=== PATIENT | female | born 1945 | race Caucasian/White ===

== ENCOUNTER 2016-05-21 10:09 | Inpatient (IN) | payer MEDICARE, OTHER ==
[~2016-05-21] VITALS: Ht 160 cm; Wt 94.3 kg
[2016-05-21 11:15] LABS: HEMOGLOBIN 14.3 gm/dl (12.3-15.3); RED BLOOD COUNT 5.35 M/UL (4.00-5.10); WHITE BLOOD COUNT 7.9 K/UL (4.5-11.0)
[2016-05-21] MEDS ORDERED: DIGOXIN125 MCG PO (14:40)
[2016-05-21] MEDS ORDERED: XARELTO20 MG PO (14:41)
[2016-05-21] MEDS ORDERED: DIABETA 2.5 MG2.5 MG PO (14:42)
[2016-05-21] MEDS ORDERED: ASPIRIN325 MG PO (14:42)
[2016-05-21] MEDS ORDERED: METOPROLOL TAR100 MG PO (14:43)
[2016-05-21] MEDS ORDERED: LEVOTHYROXINE75 MCG PO (14:43)
[2016-05-21] MEDS ORDERED: CATAPRES 0.1MG0.1 MG PO (14:43)
[2016-05-21] MEDS ORDERED: SIMVASTATIN40 MG PO (14:45)
[2016-05-21] MEDS ORDERED: VALSARTAN-HCTZ1 EAC3 PO (14:46)
[2016-05-22 04:07] LABS: HEMOGLOBIN 14.5 gm/dl (12.3-15.3); RED BLOOD COUNT 5.36 M/UL (4.00-5.10)
[2016-05-22 04:09] LABS: WHITE BLOOD COUNT 5.5 K/UL (4.5-11.0)
[2016-05-22 20:44] LABS: HEMOGLOBIN 13.6 gm/dl (12.3-15.3); RED BLOOD COUNT 5.07 M/UL (4.00-5.10)
[2016-05-22 20:46] LABS: WHITE BLOOD COUNT 12.1 K/UL (4.5-11.0)
[2016-05-24 06:22] LABS: RED BLOOD COUNT 5.18 M/UL (4.00-5.10)
[2016-05-24 06:23] LABS: WHITE BLOOD COUNT 8.1 K/UL (4.5-11.0)
[2016-05-24] MEDS ORDERED: ASPIR 8181 MG PO (17:44)
[2016-05-24] MEDS ORDERED: LEVOTHYROXINE50 MCG PO (17:46)
[2016-05-24] MEDS ORDERED: TYLENOL 325MG325 MG PO (17:52)
[2016-05-24] MEDS ORDERED: XARELTO 15 MG T15 MG PO (17:54)
[2016-05-24] MEDS ORDERED: TAMIFLU75 MG PO (18:35)
[2016-05-24] MEDS ORDERED: CORDARONE 200M200 MG PO (18:37)
== END 2016-05-24 19:17 | disposition home or self-care (01) | DRG 308 ==
LOC: ER1 10:09 → PROG CARE 12:14 → ZEROF 12:14 → PROG CARE 14:27 → MED SURG 4 05-23 22:40
PROVIDERS: Emergency Medicine; Internal Medicine Cardiovascular Disease; Physician Assistant Medical; ADMIT Internal Medicine Infectious Disease
PROC: B24BZZ4 Ultrasonography of Heart with Aorta, Transesophageal (ICD-10-PCS; principal; 2016-05-22)
PROC: 5A2204Z Restoration of Cardiac Rhythm, Single (ICD-10-PCS; 2016-05-22)
DX: I48.0 Paroxysmal atrial fibrillation (principal); I50.33 Acute on chronic diastolic (congestive) heart failure; N17.9 Acute kidney failure, unspecified; I11.0 Hypertensive heart disease with heart failure; I25.10 Atherosclerotic heart disease of native coronary artery without angina pectoris; Z95.1 Presence of aortocoronary bypass graft; E78.5 Hyperlipidemia, unspecified; E11.9 Type 2 diabetes mellitus without complications; E66.9 Obesity, unspecified; Z68.36 Body mass index [BMI] 36.0-36.9, adult; J11.1 Influenza due to unidentified influenza virus with other respiratory manifestations; B00.1 Herpesviral vesicular dermatitis; E03.9 Hypothyroidism, unspecified; Z90.710 Acquired absence of both cervix and uterus; Z98.51 Tubal ligation status; Z79.84 Long term (current) use of oral hypoglycemic drugs; Z79.82 Long term (current) use of aspirin; Z79.899 Other long term (current) drug therapy; Z87.891 Personal history of nicotine dependence; Z82.49 Family history of ischemic heart disease and other diseases of the circulatory system; R50.9 Fever, unspecified
CPT/HCPCS: 36415; 71010; 80048; 80053; 80061; 80162; 81001; 82550; 82553; 82962; 83036; 83605; 83735; 83874; 83880; 84439; 84443; 84484; 85025; 85027; 87040; 87086; 93005; 93312; 93320; 94640; 94664; 96365; 96366; 96375; 96376; 99291; J1160; J1200; J1335; J1940; J2250; J2270; J2930; J7040; J7050

== ENCOUNTER → 2016-06-25 | Outpatient (CLI) | payer MEDICARE, OTHER ==
[~2016-06-25] MED LIST: ASPIR 8181 MG PO; ASPIRIN325 MG PO; CARDURA 2MG TAB2 MG PO; CATAPRES 0.1MG0.1 MG PO; CORDARONE 200M200 MG PO; DIABETA 2.5 MG2.5 MG PO; DIABETA 5 MG TAB5 MG PO; DIGOXIN125 MCG PO; DIOVAN320 MG PO; HYDRALAZINE HCL25 MG PO; HYDROCHLOROTHIA25 MG PO; LEVOTHYROXINE50 MCG PO; LEVOTHYROXINE75 MCG PO; LISINOPRIL40 MG PO; METOPROLOL TAR100 MG PO; NORVASC 5 MG TAB5 MG PO; SIMVASTATIN40 MG PO; TAMIFLU75 MG PO; TYLENOL 325MG325 MG PO; VALSARTAN-HCTZ1 EAC3 PO; XARELTO 15 MG T15 MG PO; XARELTO20 MG PO
== END ==
LOC: LAB 09:50
PROVIDERS: Internal Medicine Cardiovascular Disease
DX: Z00.00 Encounter for general adult medical examination without abnormal findings (principal); I10 Essential (primary) hypertension
CPT/HCPCS: 36415; 80048

== ENCOUNTER → 2016-07-03 | Outpatient (CLI) | payer MEDICARE, OTHER | LOC: LAB 08:37 | PROVIDERS: Internal Medicine Cardiovascular Disease | DX: I25.10 Atherosclerotic heart disease of native coronary artery without angina pectoris (principal); I48.0 Paroxysmal atrial fibrillation; R06.02 Shortness of breath; E78.5 Hyperlipidemia, unspecified; Z79.899 Other long term (current) drug therapy | CPT/HCPCS: 36415; 80053; 84439; 84443; 84481 ==

== ENCOUNTER 2016-07-24 23:48 | Inpatient (IN) | payer MEDICARE, OTHER ==
[~2016-07-24] VITALS: Ht 160 cm; Wt 95.7 kg
[~2016-07-24 23:48] MED LIST changes: -CARDURA 2MG TAB2 MG PO; -DIABETA 5 MG TAB5 MG PO; -DIOVAN320 MG PO; -HYDRALAZINE HCL25 MG PO; -HYDROCHLOROTHIA25 MG PO; -LISINOPRIL40 MG PO; -NORVASC 5 MG TAB5 MG PO
[2016-07-25 00:30] LABS: HEMOGLOBIN 13.7 gm/dl (12.3-15.3); RED BLOOD COUNT 5.28 M/UL (4.00-5.10)
[2016-07-25 01:03] LABS: BUN/CREATININE RATIO 18 (0-10)
[2016-07-25] MEDS ORDERED: DIABETA 5 MG TAB5 MG PO (03:00)
[2016-07-25] MEDS ORDERED: HYDROCHLOROTHIA25 MG PO (03:04)
[2016-07-25] MEDS ORDERED: DIOVAN320 MG PO (03:05)
[2016-07-25] MEDS ORDERED: CATAPRES 0.1MG0.1 MG PO (03:06)
[2016-07-25 06:48] LABS: HEMOGLOBIN 12.9 gm/dl (12.3-15.3); RED BLOOD COUNT 5.01 M/UL (4.00-5.10)
[2016-07-25 07:15] LABS: BUN/CREATININE RATIO 16 (0-10)
[2016-07-27] MEDS ORDERED: NORVASC 5 MG TAB5 MG PO (11:40)
[2016-07-27] MEDS ORDERED: CARDURA 2MG TAB2 MG PO (11:41)
[2016-07-27] MEDS ORDERED: HYDRALAZINE HCL25 MG PO (11:42)
[2016-07-27] MEDS ORDERED: LISINOPRIL40 MG PO (11:43)
== END 2016-07-27 16:36 | disposition home or self-care (01) | DRG 304 ==
LOC: ER1 23:48 → M/S 07-25 01:42 → ZEROF 07-25 01:42 → M/S 07-25 02:41
PROVIDERS: Emergency Medicine; ADMIT Internal Medicine
DX: I16.1 Hypertensive emergency (principal); I50.33 Acute on chronic diastolic (congestive) heart failure; I11.0 Hypertensive heart disease with heart failure; I48.0 Paroxysmal atrial fibrillation; R07.9 Chest pain, unspecified; E11.65 Type 2 diabetes mellitus with hyperglycemia; E66.3 Overweight; Z68.37 Body mass index [BMI] 37.0-37.9, adult; I25.10 Atherosclerotic heart disease of native coronary artery without angina pectoris; Z87.891 Personal history of nicotine dependence; Z95.1 Presence of aortocoronary bypass graft; E78.5 Hyperlipidemia, unspecified; Z72.3 Lack of physical exercise; Z79.02 Long term (current) use of antithrombotics/antiplatelets; Z79.82 Long term (current) use of aspirin; Z79.84 Long term (current) use of oral hypoglycemic drugs; Z79.899 Other long term (current) drug therapy; Z88.8 Allergy status to other drugs, medicaments and biological substances; Z82.49 Family history of ischemic heart disease and other diseases of the circulatory system; Z82.1 Family history of blindness and visual loss
CPT/HCPCS: ECHO; 36415; 71010; 80048; 80053; 82550; 82553; 82962; 83036; 83735; 83874; 83880; 84100; 84439; 84443; 84484; 85025; 93005; 93306; 96374; 99285; J0360

== ENCOUNTER → 2016-07-30 | Outpatient (CLI) | payer MEDICARE, OTHER ==
[~2016-07-30] MED LIST changes: +CARDURA 2MG TAB2 MG PO; +DIABETA 5 MG TAB5 MG PO; +DIOVAN320 MG PO; +HYDRALAZINE HCL25 MG PO; +HYDROCHLOROTHIA25 MG PO; +LISINOPRIL40 MG PO; +NORVASC 5 MG TAB5 MG PO
== END ==
LOC: LAB 12:03
PROVIDERS: Physician Assistant Medical
DX: E87.6 Hypokalemia (principal)
CPT/HCPCS: 36415; 80048

== ENCOUNTER → 2016-08-12 | Outpatient (CLI) | payer MEDICARE, OTHER | LOC: LAB 10:48 | DX: I48.91 Unspecified atrial fibrillation (principal); E05.90 Thyrotoxicosis, unspecified without thyrotoxic crisis or storm; R06.02 Shortness of breath; Z79.899 Other long term (current) drug therapy | CPT/HCPCS: 36415; 84439; 84443; 84481 ==

== ENCOUNTER → 2020-05-22 | Outpatient (CLI) | payer MEDICARE, OTHER ==
[~2020-05-22] MED LIST changes: +ALLERGY RELIEF10 MG PO; +AMIODARONE HCL200 MG PO; +CARDIZEM CD240 MG PO; +DIOVAN HCT 3201 EAC1 PO; +DOXAZOSIN MESYLA2 MG PO; +FEOSOL325 MG PO; +FERROUS SULFAT325 M2 PO; +FUROSEMIDE20 MG PO; +GLUCOPHAGE 500500 MG PO; +GLUCOTROL5 MG PO; +IRON18 MG PO; +K-DUR TAB 10 M10 MEQ PO; +KLOR-CON 1010 MEQ PO; +LEVOTHYROXINE25 MCG PO; +LIPITOR TAB 2020 MG PO; +LOPRESSOR100 MG PO; +LOSARTAN-HCTZ1 EAC2 PO; +NITROSTAT0.4 MG SL; +NORVASC5 MG PO; +PROTONIX 40 MG40 M1 PO; +PROTONIX40 MG PO; +SIMVASTATIN20 MG PO; +SYNTHROID100 MCG PO; +SYNTHROID25 MCG PO; +VALSARTAN-HCTZ1 EAC2 PO; +VALSARTAN-HCTZ1 EACH PO; +ZOCOR40 MG PO
== END ==
LOC: HEART 5 13:02
DX: Z79.899 Other long term (current) drug therapy (principal); R06.00 Dyspnea, unspecified; R05 Cough
CPT/HCPCS: 94060; 94729

== ENCOUNTER → 2020-05-25 | Outpatient (CLI) | payer MEDICARE, OTHER | LOC: HEART 5 13:59 | DX: I48.91 Unspecified atrial fibrillation (principal); I25.10 Atherosclerotic heart disease of native coronary artery without angina pectoris; I50.9 Heart failure, unspecified; I51.7 Cardiomegaly | CPT/HCPCS: 93306 ==

== ENCOUNTER 2020-05-31 05:28 | Observation (INO) | payer MEDICARE, OTHER ==
[~2020-05-31] VITALS: Ht 160 cm; Wt 91.6 kg
[~2020-05-31 05:28] MED LIST changes: -ALLERGY RELIEF10 MG PO; -DIOVAN HCT 3201 EAC1 PO; -FERROUS SULFAT325 M2 PO; -GLUCOPHAGE 500500 MG PO; -GLUCOTROL5 MG PO; -KLOR-CON 1010 MEQ PO; -LOPRESSOR100 MG PO; -NITROSTAT0.4 MG SL; -NORVASC5 MG PO; -PROTONIX 40 MG40 M1 PO; -SYNTHROID100 MCG PO
[2020-05-31 06:08] LABS: HEMOGLOBIN 13.3 gm/dl (12.3-15.3); RED BLOOD COUNT 5.43 M/UL (4.00-5.10); WHITE BLOOD COUNT 14.6 K/UL (4.5-11.0)
[2020-05-31 06:27] LABS: BUN/CREATININE RATIO 16 (0-10)
[2020-05-31] MEDS ORDERED: SYNTHROID100 MCG PO (07:18)
[2020-05-31] MEDS ORDERED: AMIODARONE HCL200 MG PO (08:12)
[2020-05-31] MEDS ORDERED: GLUCOTROL5 MG PO (08:56)
[2020-05-31] MEDS ORDERED: LOPRESSOR100 MG PO (08:57)
[2020-05-31] MEDS ORDERED: NORVASC5 MG PO (10:02)
[2020-05-31] MEDS ORDERED: CATAPRES 0.1MG0.1 MG PO (10:04)
[2020-05-31] MEDS ORDERED: FERROUS SULFAT325 M2 PO (10:05)
[2020-05-31] MEDS ORDERED: KLOR-CON 1010 MEQ PO (10:06)
[2020-05-31] MEDS ORDERED: DIOVAN HCT 3201 EAC1 PO (10:06)
[2020-05-31] MEDS ORDERED: ALLERGY RELIEF10 MG PO (10:07)
[2020-05-31] MEDS ORDERED: XARELTO20 MG PO (11:16)
[2020-05-31 15:23] LABS: RED BLOOD COUNT 5.26 M/UL (4.00-5.10)
[2020-05-31] MEDS ORDERED: GLUCOPHAGE 500500 MG PO (16:56)
[2020-06-01 04:55] LABS: HEMOGLOBIN 11.2 gm/dl (12.3-15.3)
[2020-06-01 04:58] LABS: RED BLOOD COUNT 4.71 M/UL (4.00-5.10); WHITE BLOOD COUNT 7.4 K/UL (4.5-11.0)
[2020-06-01] MEDS ORDERED: PROTONIX 40 MG40 M1 PO (14:56)
[2020-06-01] MEDS ORDERED: NITROSTAT0.4 MG SL (15:03)
== END 2020-06-01 15:42 | disposition home or self-care (01) ==
LOC: ER1 05:28 → CDU 08:18 → MED SURG 4 15:42
PROVIDERS: Family Medicine; Physician Assistant Medical; ADMIT Internal Medicine
DX: R07.89 Other chest pain (principal); I25.10 Atherosclerotic heart disease of native coronary artery without angina pectoris; I48.20 Chronic atrial fibrillation, unspecified; I27.20 Pulmonary hypertension, unspecified; I11.0 Hypertensive heart disease with heart failure; I50.30 Unspecified diastolic (congestive) heart failure; E11.9 Type 2 diabetes mellitus without complications; E78.5 Hyperlipidemia, unspecified; E03.9 Hypothyroidism, unspecified; D64.9 Anemia, unspecified; J44.9 Chronic obstructive pulmonary disease, unspecified; K21.9 Gastro-esophageal reflux disease without esophagitis; K29.70 Gastritis, unspecified, without bleeding; I08.1 Rheumatic disorders of both mitral and tricuspid valves; I45.10 Unspecified right bundle-branch block; Z95.1 Presence of aortocoronary bypass graft; Z87.891 Personal history of nicotine dependence; Z98.890 Other specified postprocedural states; Z79.01 Long term (current) use of anticoagulants; Z79.84 Long term (current) use of oral hypoglycemic drugs; Z79.899 Other long term (current) drug therapy; Z20.822 Contact with and (suspected) exposure to COVID-19
CPT/HCPCS: 71045; 71046; 80048; 80053; 82550; 82553; 82962; 83735; 83874; 84484; 85025; 85027; 93005; 99285; G0378; J7030; U0002

== ENCOUNTER 2021-02-23 16:05 | Inpatient (IN) | payer MEDICARE, OTHER ==
[~2021-02-23] VITALS: Ht 160 cm; Wt 83.9 kg
[~2021-02-23 16:05] MED LIST changes: +ALLERGY RELIEF10 MG PO; +DIOVAN HCT 3201 EAC1 PO; +FERROUS SULFAT325 M2 PO; +GLUCOPHAGE 500500 MG PO; +GLUCOTROL5 MG PO; +KLOR-CON 1010 MEQ PO; +LOPRESSOR100 MG PO; +NITROSTAT0.4 MG SL; +NORVASC5 MG PO; +PROTONIX 40 MG40 M1 PO; +SYNTHROID100 MCG PO
[2021-02-23 16:51] LABS: HEMOGLOBIN 12.4 gm/dl (12.3-15.3); RED BLOOD COUNT 5.35 M/UL (4.00-5.10); WHITE BLOOD COUNT 11.7 K/UL (4.5-11.0)
[2021-02-24] MEDS ORDERED: ISOSORBIDE MONO30 MG PO (01:14)
[2021-02-24 05:13] LABS: HEMOGLOBIN 11.3 gm/dl (12.3-15.3); RED BLOOD COUNT 4.99 M/UL (4.00-5.10)
[2021-02-24] MEDS ORDERED: PROAIR HFA8.5 GM INH (08:56)
[2021-02-24] MEDS ORDERED: AZITHROMYCIN250 MG PO (08:57)
[2021-02-24] MEDS ORDERED: DEXAMETHASONE6 MG PO (08:58)
[2021-02-24] MEDS ORDERED: PREDNISONE20 MG PO (09:00)
[2021-02-24 12:12] LABS: ACINETOBACTER BAUMANNII Not Detected (Negative); CANDIDA ALBICANS Not Detected (Negative); CANDIDA KRUSEI Not Detected (Negative); CANDIDA TROPICALIS Not Detected (Negative); ENTEROCOCCUS Not Detected (Negative); ESCHERICHIA COLI Not Detected (Negative); HAEMOPHILUS INFLUENZAE Not Detected (Negative); KLEBSIELLA OXYTOCA Not Detected (Negative); KLEBSIELLA PNEUMONIAE Not Detected (Negative); KPC-CARBAPENEM-RESISTANCE GENE Not Detected (Negative); PROTEUS Not Detected (Negative); PSEUDOMONAS AERUGINOSA Not Detected (Negative); SERRATIA MARCESANS Not Detected (Negative); STAPHYLOCOCCUS AUREUS Not Detected (Negative); STREP AGALACTIAE (GROUP B) Not Detected (Negative); STREP PYOGENES (GROUP A) Not Detected (Negative); STREPTOCOCCUS Not Detected (Negative); vanA/B (VANCOMYCIN RESIST GENE Not Detected (Negative)
[2021-02-24 13:40] LABS: STAPHYLOCOCCUS DETECTED (Negative); mecA (METHICILLIN RESIST GENE DETECTED (Negative)
[2021-02-25 05:30] LABS: HEMOGLOBIN 11.8 gm/dl (12.3-15.3); RED BLOOD COUNT 5.36 M/UL (4.00-5.10); WHITE BLOOD COUNT 6.9 K/UL (4.5-11.0)
[2021-02-25 06:16] LABS: BUN/CREATININE RATIO 21 (0-10)
[2021-02-26 04:57] LABS: HEMOGLOBIN 10.7 gm/dl (12.3-15.3); RED BLOOD COUNT 4.91 M/UL (4.00-5.10)
[2021-02-26 05:08] LABS: WHITE BLOOD COUNT 11.5 K/UL (4.5-11.0)
[2021-02-26 05:52] LABS: BUN/CREATININE RATIO 27 (0-10)
[2021-02-27 06:00] LABS: RED BLOOD COUNT 5.01 M/UL (4.00-5.10); WHITE BLOOD COUNT 16.2 K/UL (4.5-11.0)
[2021-02-27 06:37] LABS: BUN/CREATININE RATIO 28 (0-10)
[2021-02-28 06:03] LABS: HEMOGLOBIN 12.1 gm/dl (12.3-15.3); RED BLOOD COUNT 5.39 M/UL (4.00-5.10); WHITE BLOOD COUNT 13.9 K/UL (4.5-11.0)
[2021-02-28 06:54] LABS: BUN/CREATININE RATIO 30 (0-10)
[2021-03-02 08:24] LABS: BUN/CREATININE RATIO 47 (0-10)
[2021-03-03 05:57] LABS: HEMOGLOBIN 10.8 gm/dl (12.3-15.3); RED BLOOD COUNT 4.81 M/UL (4.00-5.10); WHITE BLOOD COUNT 21.4 K/UL (4.5-11.0)
--- NOTE | 2021-03-03 06:56 | NUR ---
PT'S DAUGHTER TOOK OUT HEARING AID AT 0500 AM TODAY IN ATTEMPT FOR HER TO DECREASE STIMULATION AND HELP PT REST BETTER
--- NOTE | 2021-03-04 21:00 | NUR ---
PATIENT LETHARGIC . RESPONDS VERBALLY WITH STERNAL RUB. PRECEDEX STOPPED. JENELLE AT BEDSIDE , ALL QUESTIONS AND CONCERNS ADDRESSED. RECEIVED CALL FROM PATIENTS DAUGHTER, SHE WAS CONTACTED BY JENELLE WITH CONCERNS. MARIANGEL QUESTIONS AND CONCERNS ADDRESSED. PO MEDS DUE AT THIS TIME HELD UNTIL AWAKE ENOUGH TO ADMINISTER.
--- NOTE | 2021-03-04 22:36 | NUR ---
PATIENT AWAKE AND RESPONDING VERBALLY. TOOK PO MEDS WITH APPLESAUCE WITHOUT COMPLICATION. GRANDAUGHTER AT BEDSIDE . PRECEDEX REMAINS OFF AT THIS TIME.
[2021-03-05 05:11] LABS: HEMOGLOBIN 10.7 gm/dl (12.3-15.3); RED BLOOD COUNT 4.79 M/UL (4.00-5.10); WHITE BLOOD COUNT 22.6 K/UL (4.5-11.0)
--- NOTE | 2021-03-05 19:00 | NUR ---
FAMILY MEMBERS X 2 AT BEDSIDE (PT'S DAUGHTER AND PT'S SON-IN-LAW). DAUGHTER STATES SHES TURNING AND PROVIDING BASIC NEEDS SUCH FEEDING AND DRINKING. THEY WERE ALSO CLEANING PATIENT WHEN SHE WAS INCONTENENT OF STOOL. ENCOURAGED TO REPORT ANY NEEDS . VERBALIZED UNDERSTANDING.
--- NOTE | 2021-03-06 14:46 | NUR ---
CALLED DR. ALEJANDRE ABOUT [facility] RVR. PHONE LINE WAS BUSY. WILL TRY TO CALL AGAIN.
[2021-03-06 15:19] LABS: HEMOGLOBIN 10.6 gm/dl (12.3-15.3); RED BLOOD COUNT 4.64 M/UL (4.00-5.10); WHITE BLOOD COUNT 22.2 K/UL (4.5-11.0)
--- NOTE | 2021-03-06 20:23 | NUR ---
RECEIVED CALLS FROM JUWAN ( DAUGHTER AND GRANDAUGHTER) OF PATIENT. CONCERNS WERE DISCUSSED REGARDING PATIENTS MEDICATIONS XANAX AND SEROQUEL. PER FAMILY THOSE MEDICATIONS WILL BE HELD AND INFORMATION WILL BE RELAYED TO ONCOMING SHIFT. NAZARIO STATES SHES A HELTH STRAP MAKER AND WISHES TO SPEAK WITH PRIMARY PHYSICIAN REGARDING MEDICATIONS. ALL QUESTONS AND CONCERNS WERE ADDRESSED BY MYSELF UNTIL FAMILY CAN PROCEED WITH FURTHER QUESTIONS WITH PHYSICIAN.
--- NOTE | 2021-03-06 22:42 | NUR ---
IV RIGHT FOREARM INFILTRATED. IVF STOPPED ,IV DISCONTINUED . ATTEPTING TO OBTAIN NEW IV SITE.
--- NOTE | 2021-03-07 03:44 | NUR ---
OCCASIONALLY TAKES AIR-VO CANNULA OFF AND DESATS EASILY TO 74% . PLEASANT AT THIS TIME, LAUGHS AND MAKES MUMBLING CONVERSATION. NO S/S DISTRESS OR DISCOMFORT.
[2021-03-07 05:24] LABS: HEMOGLOBIN 11.4 gm/dl (12.3-15.3); RED BLOOD COUNT 5.1 M/UL (4.00-5.10)
[2021-03-07 05:27] LABS: WHITE BLOOD COUNT 31.7 K/UL (4.5-11.0)
[2021-03-07 18:17] LABS: RED BLOOD COUNT 5.18 M/UL (4.00-5.10)
[2021-03-08 03:13] LABS: HEMOGLOBIN 11.4 gm/dl (12.3-15.3); RED BLOOD COUNT 5.05 M/UL (4.00-5.10); WHITE BLOOD COUNT 29.1 K/UL (4.5-11.0)
[2021-03-08 04:13] LABS: BUN/CREATININE RATIO 41 (0-10)
[2021-03-09 03:33] LABS: HEMOGLOBIN 11.8 gm/dl (12.3-15.3); RED BLOOD COUNT 5.21 M/UL (4.00-5.10)
[2021-03-09] MEDS ORDERED: BUDESONIDE0.5 MG/2 M NEB (09:11)
[2021-03-09] MEDS ORDERED: ATIVAN0.5 MG PO (09:11)
[2021-03-09] MEDS ORDERED: ROXANOL SOLN20 MG/ML PO (09:11)
[2021-03-09] MEDS ORDERED: LEVALBUTER1.25 MG/3 NEB (09:11)
[2021-03-09 13:29] LABS: WHITE BLOOD COUNT 30.2 K/UL (4.5-11.0)
== END 2021-03-11 16:40 | DRG 177 ==
LOC: ER1 16:05 → PROG CARE 18:30 → CCU 18:30 → CDU 18:30 → MED SURG 4 18:30 → CCU 02-27 14:52 → PROG CARE 03-07 12:38
PROVIDERS: Internal Medicine; Physician Assistant; ADMIT Internal Medicine
PROC: 8E0ZXY6 Isolation (ICD-10-PCS; principal; 2021-02-23)
PROC: 3E0333Z Introduction of Anti-inflammatory into Peripheral Vein, Percutaneous Approach (ICD-10-PCS; 2021-02-23)
PROC: XW033E5 Introduction of Remdesivir Anti-infective into Peripheral Vein, Percutaneous Approach, New Technology Group 5 (ICD-10-PCS; 2021-02-23)
PROC: 5A0945A Assistance with Respiratory Ventilation, 24-96 Consecutive Hours, High Flow/Velocity Cannula (ICD-10-PCS; 2021-02-23)
PROC: 5A09457 Assistance with Respiratory Ventilation, 24-96 Consecutive Hours, Continuous Positive Airway Pressure (ICD-10-PCS; 2021-02-27)
PROC: 5A09457 Assistance with Respiratory Ventilation, 24-96 Consecutive Hours, Continuous Positive Airway Pressure (ICD-10-PCS; 2021-03-04)
DX: U07.1 COVID-19 (principal); J12.82 Pneumonia due to coronavirus disease 2019; J80 Acute respiratory distress syndrome; G93.41 Metabolic encephalopathy; A41.9 Sepsis, unspecified organism; J15.9 Unspecified bacterial pneumonia; R65.20 Severe sepsis without septic shock; E87.1 Hypo-osmolality and hyponatremia; N17.9 Acute kidney failure, unspecified; J44.0 Chronic obstructive pulmonary disease with (acute) lower respiratory infection; E87.0 Hyperosmolality and hypernatremia; E44.1 Mild protein-calorie malnutrition; I50.32 Chronic diastolic (congestive) heart failure; I48.92 Unspecified atrial flutter; Z66 Do not resuscitate; E03.9 Hypothyroidism, unspecified; E78.5 Hyperlipidemia, unspecified; I45.10 Unspecified right bundle-branch block; E66.9 Obesity, unspecified; I27.20 Pulmonary hypertension, unspecified; F03.90 Unspecified dementia, unspecified severity, without behavioral disturbance, psychotic disturbance, mood disturbance, and anxiety; I11.0 Hypertensive heart disease with heart failure; K29.50 Unspecified chronic gastritis without bleeding; I48.0 Paroxysmal atrial fibrillation; E11.9 Type 2 diabetes mellitus without complications; I25.10 Atherosclerotic heart disease of native coronary artery without angina pectoris; E88.09 Other disorders of plasma-protein metabolism, not elsewhere classified; K21.9 Gastro-esophageal reflux disease without esophagitis; Z95.1 Presence of aortocoronary bypass graft; Z79.84 Long term (current) use of oral hypoglycemic drugs; Z79.899 Other long term (current) drug therapy; Z82.49 Family history of ischemic heart disease and other diseases of the circulatory system; Z87.891 Personal history of nicotine dependence; Z51.5 Encounter for palliative care; Z68.32 Body mass index [BMI] 32.0-32.9, adult
CPT/HCPCS: 0240U; 36415; 36600; 71045; 80048; 80053; 80076; 80202; 81001; 82728; 82803; 82962; 83605; 83735; 85025; 85027; 85379; 86140; 87040; 87077; 87086; 87150; 87186; 93005; 94640; 94660; 94664; 94760; 96374; 99285; A6212; J0248; J0456; J0696; J1100; J1160; J1335; J1940; J2060; J2270; J3370; J7030; J7070